=== PATIENT | male | born 1955 | race Caucasian/White ===

== ENCOUNTER 2017-01-15 21:06 | Emergency (ER) | payer OTHER ==
[~2017-01-15] VITALS: Ht 180.3 cm; Wt 99.3 kg
[2017-01-15] MEDS ORDERED: LORAZEPAM 0.5 MG TABLET PO ONE (22:15)
[2017-01-15] MEDS ORDERED: LORAZEPAM 1 MG TABLET ONE (22:32)
--- NOTE | 2017-01-15 22:56 | NUR ---
Patient is Alert and oriented x4. Patient discharged to home in stable conditon. Written and verbal after care instructions given. Patient verbalizes understanding of instructions. Provided with list of homeless shelters and resources. Patient able to ambulate with stable gait, cleared for discharge by Dr Fitzpatrick.
--- NOTE | 2017-01-15 22:57 | NUR ---
All belongings taken home with patient.
[2017-01-15 23:00] VITALS: BP 129/69
== END 2017-01-15 23:00 | disposition home or self-care (01) ==
LOC: ER 21:07 → EDBD 21:07 → ER 23:00
DX: F10.239 Alcohol dependence with withdrawal, unspecified (principal); I10 Essential (primary) hypertension
CPT/HCPCS: A4663